=== PATIENT | male | born 1985 | race Caucasian/White ===

== ENCOUNTER 2020-01-21 01:18 | Inpatient (IN) | payer MEDICAID ==
[~2020-01-21] VITALS: Ht 182.8 cm; Wt 120.3 kg
[2020-01-21] VITALS (8 sets, daily range): BP systolic 126–147; BP diastolic 82–102
[2020-01-21] MEDS ORDERED: BENADRYL ALLERG25 M5 PO (01:32)
[2020-01-21 02:07] LABS: BASO # 0.1 10*3/uL (0.0-0.1); BASO % 0.4 % (0.0-1.0); EOS # 0.1 10*3/uL (0.0-0.4); EOS % 0.6 % (1.0-4.0); HEMATOCRIT 34.7 % (42.0-52.0); LYMPH # 2.3 10*3/uL (1.3-4.4); LYMPH % 14.6 % (27.0-41.0); MEAN CELL VOLUME 103.9 fl (80.0-94.0); MEAN CORPUSCULAR HGB 36.5 pg (27.0-31.0); MEAN CORPUSCULAR HGB CONC 35.2 g/dl (33.0-37.0); MEAN PLATELET VOLUME 10.5 fl (9.6-12.3); MONO # 1.2 10*3/uL (0.1-1.0); MONO % 7.7 % (3.0-9.0); NEUT # 12.1 10*3/uL (2.3-7.9); PLATELET COUNT AUTOMATED 252 10*3/uL (130-400); RED BLOOD COUNT 3.34 10*6/uL (4.50-5.90); RED CELL DISTRI WIDTH 15.8 % (0-14.5); WHITE BLOOD COUNT 15.9 10*3/uL (4.8-10.8)
[2020-01-21 02:17] LABS: INTERNATIONAL NORM RATIO 1.5 (2.0-3.5)
[2020-01-21 02:22] LABS: BILIRUBIN 2+; BLOOD NEGATIVE (NEGATIVE); CLARITY CLEAR (CLEAR); COLOR YELLOW (YELLOW); GLUCOSE NEGATIVE; KETONE NEGATIVE; LEUKO ESTERASE NEGATIVE (NEGATIVE); NITRITE NEGATIVE (NEGATIVE)
[2020-01-21 02:24] LABS: ALBUMIN 2.1 gm/dl (3.1-4.5); ALKALINE PHOSPHATASE 410 U/L (45-117); BUN 2 mg/dl (7-24); CHLORIDE 95 mmol/L (98-107); CREATININE 0.85 mg/dL (0.70-1.30); POTASSIUM 2.6 mmol/L (3.5-5.1); SGOT/AST 277 IU/L (3-35); SGPT/ALT 47 U/L (12-78); SODIUM 133 mmol/L (136-145); TOTAL PROTEIN 8.2 gm/dL (6.4-8.2)
[2020-01-21 02:27] LABS: TROPONIN I < 0.015 ng/ml (<0.045)
[2020-01-21 04:18] LABS: LIPASE 83 U/L (73-393)
--- NOTE | 2020-01-21 05:05 | NUR ---
PT RESTING IN BED WITH EYES OPEN WATCHING TV, NO DISTRESS NOTED, RESP EASY NON LABORED, RN WILL CONTINUE TO MONITOR
--- NOTE | 2020-01-21 07:25 | NUR ---
PT SLEEPING ON COT. WANTS TO SLEEP. STATES HE IS GETTING "DELERIOUS" FROM LACK OF SLEEP. WILL CONTINUE TO MONITOR.
--- NOTE | 2020-01-21 08:45 | NUR ---
The assessment has been completed. DAGO ESCUDERO Time: 844 A 34 year old MALE admitted to 5E under services of CHACHA WAY DO. Pt. arrived via ambulatory from ER. Chief complaint: C/O INCREASED ANXIETY. STATES HE IS GOING THROUGH A DIVORCE AND HAS ATTEMPTED TO STOP DRINKING. STATES THAT HE DID DRINK 2 BEERS ENROUTE TO ED. PER PT HIS SISTER FAVE HIM A SMALL PIECE OF SUBOXONE. PT THOUGHT THAT IT WOULD HELP W ALCOHOL. PT STATES HE DRINKS 4 MIXED MALT LIQUOR A DAY. C/O MUSCLE CRAMPS/SWELLING TO LOWER EXTREMITIES.. DAGO ESCUDERO
[2020-01-21] MEDS ORDERED: SLEEP AID25 M2 PO (09:01)
--- NOTE | 2020-01-21 10:00 | NUR ---
PT STATES HE JUST WANTS TO REST AND DOES NOT WANT TO BE WOKEN UP. WILL CONTINUE TO MONITOR AND REAPPLY HEART MONITOR WHEN PT WAKES UP.
--- NOTE | 2020-01-21 10:06 | NUR ---
DR SUAZO'S NURSE PRACTITIONER NOTIFIED OF NEW CONSULT. NO NEW ORDERS AT THIS TIME
--- NOTE | 2020-01-21 15:41 | NUR ---
INTO PTS ROOM. PT AGITATED STATING HE JUST WANTS TO ND THAT HE IS GOING TO JUMP OUT OF THE WINDOW. DE-ESCALATION TECHNIQUES IMPLEMENTED. ASSISTED PT BACK TO BED. SAFETY MEASURES IN PLACE. BED ALRM ON. CALL LIGHT WITHIN REACH. WILL CONTINUE TO FREQUENTLY MONITOR. SUICIDE RISK TOOL COMPLETED AT THIS TIME AND DR PURVIS NOTIFIED. PER DR PURVIS PT CAN BE MOVED TO [facility] PT FOR LINE OF SIGHT MONITORING.
--- NOTE | 2020-01-21 19:20 | NUR ---
CALL LIGHT ON; PT. WANTS TO TAKE A SHOWER. INFORMED PATIENT THAT WE WERE STILL IN REPORT & THAT HE COULD TAKE A SHOWER LATER. PATIENT ALSO THOUGHT THAT HE DIDN;T NEED HIS IV'S ANYMORE & TOOK BOTH OF THEM OUT.
--- NOTE | 2020-01-21 19:45 | NUR ---
IV started right antecubital with #22 protective cath after 1 attempts. Site prepped with Chloroprep. Sterile dressing applied. Patient tolerated procedure well. IV infusing at cc/hr. REGGIE CRUZ
--- NOTE | 2020-01-21 22:00 | NUR ---
MEDICATED WITH BENADRYL & ATIVAN.
--- NOTE | 2020-01-22 | NUR ---
RESTING IN BED WITH EYES CLOSED; ATIVAN/BENADRYL EFFECTIVE.
[2020-01-22 01:00] VITALS: BP 145/100
--- NOTE | 2020-01-22 01:13 | NUR ---
CALLED DR. APPIAH PERTAINING TO PT'S BLOOD PRESSURE; NO NEW ORDERS RECEIVED.
[2020-01-22 06:28] LABS: ALBUMIN 1.8 gm/dl (3.1-4.5); BUN 5 mg/dl (7-24); CHLORIDE 102 mmol/L (98-107); CREATININE 0.77 mg/dL (0.70-1.30); LIPASE 97 U/L (73-393); POTASSIUM 3.2 mmol/L (3.5-5.1); SODIUM 136 mmol/L (136-145)
[2020-01-22 06:32] LABS: ALKALINE PHOSPHATASE 345 U/L (45-117); SGOT/AST 233 IU/L (3-35); SGPT/ALT 39 U/L (12-78); TOTAL PROTEIN 7.3 gm/dL (6.4-8.2)
[2020-01-22 06:35] LABS: BASO # 0.1 10*3/uL (0.0-0.1); BASO % 0.5 % (0.0-1.0); EOS # 0.2 10*3/uL (0.0-0.4); EOS % 1.6 % (1.0-4.0); HEMATOCRIT 33.4 % (42.0-52.0); LYMPH # 1.7 10*3/uL (1.3-4.4); LYMPH % 15.8 % (27.0-41.0); MEAN CORPUSCULAR HGB 36.5 pg (27.0-31.0); MEAN CORPUSCULAR HGB CONC 34.1 g/dl (33.0-37.0); MEAN PLATELET VOLUME 10.9 fl (9.6-12.3); MONO # 0.9 10*3/uL (0.1-1.0); MONO % 7.8 % (3.0-9.0); NEUT % 73.4 % (47.0-73.0); NUCLEATED RED BLOOD CELL 0.2 % (0.0-0.0); PLATELET COUNT AUTOMATED 190 10*3/uL (130-400); RED BLOOD COUNT 3.12 10*6/uL (4.50-5.90); RED CELL DISTRI WIDTH 16.3 % (0-14.5); WHITE BLOOD COUNT 10.9 10*3/uL (4.8-10.8)
[2020-01-22 06:36] LABS: MEAN CELL VOLUME 107.1 fl (80.0-94.0)
--- NOTE | 2020-01-22 07:30 | NUR ---
PT RESTING IN BED. RESPS EASY AND NON LABORED. NO S/S OF DISTRESS NOTED. VSS. WHITE BOARD UPDATED. POC DISCUSSED W PT. A/O X3. FINE HAND TREMORS NOTED. WILL CONTINUE TO MONITOR. CALL LIGHT WITHIN REACH. IVF INFUSING W/O INCIDENT.
[2020-01-22 08:00] VITALS: BP 142/84
--- NOTE | 2020-01-22 11:45 | NUR ---
DR SUAZO INTO SEE PT
--- NOTE | 2020-01-22 11:58 | NUR ---
met with patient, he is here due to his gallbladder, he is concerned as no ins, said that he was talked to by [employer] and he has an envelop to mail
[2020-01-22 12:00] VITALS: BP 138/90
[2020-01-22 16:00] VITALS: BP 132/86
--- NOTE | 2020-01-22 16:21 | NUR ---
PT SLEEPING. RESPS EASY AND NON LABORED. NO S/S OF DISTRESS NOTED. WILL CONTINUE TO MONITOR. CALL LIGHT WITHIN REACH.
[2020-01-22 20:00] VITALS: BP 131/96
--- NOTE | 2020-01-22 20:09 | NUR ---
REQUESTING NICODERM PATCH; CALLED DR. APPIAH & HE WILL ORDER ONE.
[2020-01-23] VITALS: BP 138/91
--- NOTE | 2020-01-23 01:06 | NUR ---
MEDICATED WITH BENADRYL FOR SLEEP PER PT'S REQUEST.
--- NOTE | 2020-01-23 02:00 | NUR ---
RESTING IN BED WITH EYES CLOSED; BENADRYL EFFECTIVE.
--- NOTE | 2020-01-23 06:00 | NUR ---
TOOK PO ATIVAN WITHOUT DIFFICULTY; VOICES NO C/O.
[2020-01-23 06:11] LABS: BASO # 0.1 10*3/uL (0.0-0.1); BASO % 0.6 % (0.0-1.0); EOS # 0.2 10*3/uL (0.0-0.4); EOS % 1.4 % (1.0-4.0); HEMATOCRIT 34.6 % (42.0-52.0); LYMPH # 1.6 10*3/uL (1.3-4.4); LYMPH % 14.4 % (27.0-41.0); MEAN CELL VOLUME 106.8 fl (80.0-94.0); MEAN CORPUSCULAR HGB 36.4 pg (27.0-31.0); MEAN CORPUSCULAR HGB CONC 34.1 g/dl (33.0-37.0); MEAN PLATELET VOLUME 10.7 fl (9.6-12.3); MONO # 1.1 10*3/uL (0.1-1.0); MONO % 9.5 % (3.0-9.0); NEUT # 8.2 10*3/uL (2.3-7.9); NEUT % 72.6 % (47.0-73.0); NUCLEATED RED BLOOD CELL 0.1 10*3/uL (0.0-0.0); NUCLEATED RED BLOOD CELL 0.5 % (0.0-0.0); PLATELET COUNT AUTOMATED 215 10*3/uL (130-400); RED BLOOD COUNT 3.24 10*6/uL (4.50-5.90); RED CELL DISTRI WIDTH 16.8 % (0-14.5); WHITE BLOOD COUNT 11.3 10*3/uL (4.8-10.8)
[2020-01-23 06:22] LABS: INTERNATIONAL NORM RATIO 1.5 (2.0-3.5)
[2020-01-23 06:26] LABS: ALBUMIN 1.9 gm/dl (3.1-4.5); BUN 5 mg/dl (7-24); CHLORIDE 102 mmol/L (98-107); POTASSIUM 3.1 mmol/L (3.5-5.1); SGOT/AST 202 IU/L (3-35); SGPT/ALT 42 U/L (12-78); SODIUM 137 mmol/L (136-145); TOTAL PROTEIN 7.6 gm/dL (6.4-8.2)
[2020-01-23 06:29] LABS: ALKALINE PHOSPHATASE 343 U/L (45-117)
[2020-01-23 08:00] VITALS: BP 134/96
[2020-01-23] MEDS ORDERED: ATIVAN1 MG PO (10:55)
[2020-01-23] MEDS ORDERED: AUGMENTIN 875-875 MG PO (10:55)
--- NOTE | 2020-01-23 12:30 | NUR ---
Discharge instructions reviewed with patient/family. Patient receptive and verbalizes understanding. Follow-up care arranged. Written instructions given to patient/family. ROSEANN RAE
== END 2020-01-23 12:30 | disposition home or self-care (01) | DRG 871 ==
LOC: ED 01:18 → 5E 07:54 → EDHOLD 07:54 → 5E 08:15
PROVIDERS: Emergency Medicine; Internal Medicine; ADMIT Emergency Medicine; ATTEND Emergency Medicine
DX: A41.9 Sepsis, unspecified organism (principal); E43 Unspecified severe protein-calorie malnutrition; K81.0 Acute cholecystitis; F10.239 Alcohol dependence with withdrawal, unspecified; E87.1 Hypo-osmolality and hyponatremia; F41.9 Anxiety disorder, unspecified; E80.6 Other disorders of bilirubin metabolism; D53.9 Nutritional anemia, unspecified; E87.6 Hypokalemia; R73.9 Hyperglycemia, unspecified; E83.42 Hypomagnesemia; F17.210 Nicotine dependence, cigarettes, uncomplicated; E87.8 Other disorders of electrolyte and fluid balance, not elsewhere classified; Z68.35 Body mass index [BMI] 35.0-35.9, adult; Z71.6 Tobacco abuse counseling; Z81.1 Family history of alcohol abuse and dependence; Z80.8 Family history of malignant neoplasm of other organs or systems; Z79.899 Other long term (current) drug therapy